=== PATIENT | male | born 1970 | race Caucasian/White ===

== ENCOUNTER → 2020-06-08 | Outpatient (CLI) | payer BC, OTHER | LOC: RAD 14:10 | DX: M47.816 Spondylosis without myelopathy or radiculopathy, lumbar region (principal); R29.890 Loss of height ==

== ENCOUNTER → 2020-09-04 | Outpatient (CLI) | payer BC, OTHER | LOC: MRI 08-21 08:11 | DX: M47.27 Other spondylosis with radiculopathy, lumbosacral region (principal); M51.17 Intervertebral disc disorders with radiculopathy, lumbosacral region; M48.061 Spinal stenosis, lumbar region without neurogenic claudication; Z98.890 Other specified postprocedural states ==